=== PATIENT | female | born 1950 | race Caucasian/White ===

== ENCOUNTER 2024-11-15 13:28 | Outpatient (CLI) | payer MEDICARE, SELFPAY ==
--- NOTE | 2024-11-15 13:45 | MR_ITS ---
WS: [id number] MRI RIGHT SHOULDER NONCONTRAST TECHNIQUE: Sagittal T2, coronal T1, T2 and proton density imaging. Axial gradient PDE imaging. CLINICAL INFORMATION: ADHESIVE CAPSULITIS OF RIGHT SHOULDER COMPARISON: None. 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 Subacromial spurring. Imp ingement on the distal supraspinatus. Chronic thinning of supraspinatus and infraspinatus. High-grade tear of the distal supraspinatus near the insertion with retraction measuring approximately 10 mm. T endinopathy infraspinatus with chronic thinning. Subacromial and subdeltoid fluid. Tendinopathy intra-articular biceps tendon which appears intact. Teres minor appears intact. Subscapu mayco tendon appears intact. Mild tendinopathy. Biceps tendon appears intact within the bicipital hamlet ove. Moderate to advanced degenerative narrowing glenohumeral articulation. Subchondral cystic change of the greater tuberosity. MR/MR shoulder RT wo con* [id number] IMPRESSION: 1. Moderate to advanced arthritis AC joint with impingement on the distal supr aspinatus. Subacromial subdeltoid fluid. 2. Small high-grade tear distal supraspinatus near the insertion with retracti on measuring approximately 10 mm. Chronic thinning of the supraspinatus and inf raspinatus. 3. Tendinopathy infraspinatus and subscapularis tendon. 4. Biceps tendon appears intact within the bicipital groove. 5. Tendinopathy intra-articular biceps tendon. 6. 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
== END 2024-11-15 13:29 | disposition home or self-care (01) ==
LOC: RAD 13:32
PROVIDERS: PCP Nurse Practitioner Family; Visit Provider Nurse Practitioner Family
DX: M75.01 Adhesive capsulitis of right shoulder (principal); M13.811 Other specified arthritis, right shoulder; R93.6 Abnormal findings on diagnostic imaging of limbs; M75.101 Unspecified rotator cuff tear or rupture of right shoulder, not specified as traumatic; M77.8 Other enthesopathies, not elsewhere classified
CPT/HCPCS: 73221

== ENCOUNTER → 2024-12-13 13:29 | Outpatient (BNVA) | payer MEDICARE, SELFPAY | PROVIDERS: PCP Nurse Practitioner Family; Visit Provider Specialist | DX: M19.011 Primary osteoarthritis, right shoulder (principal) | CPT/HCPCS: 20610; 73030; 99205; J1100; J2795; J3301 ==

== ENCOUNTER → 2025-03-18 10:16 | Outpatient (BNVA) | payer MEDICARE, SELFPAY | PROVIDERS: PCP Nurse Practitioner Family; Visit Provider Specialist | DX: M25.511 Pain in right shoulder (principal); G89.29 Other chronic pain | CPT/HCPCS: 20610; J1100; J2795; J3301; J9999 ==